=== PATIENT | male | born 1970 | race Caucasian/White ===

== ENCOUNTER 2018-10-12 12:18 | Emergency (ER) | payer OTHER ==
[~2018-10-12] VITALS: Ht 180.3 cm; Wt 86.2 kg
--- NOTE | 2018-10-12 12:44 | PHYS DOC ---
Adult General Chief Complaint Chief Complaint: ANKLE PROBLEM HPI HPI Patient is a 48-year-old male who presents with complaint of injury to his right ankle that he sustained when his foot got tangled up in latter and fell approximately 8 feet onto his right foot. Patient states that he feels like he rolled his ankle when he landed. He rates pain as being moderate and states that he has difficulty with bearing weight. He denies any other injuries. Review of Systems Review of Systems Constitutional: Denies fever or chills [] Respiratory: Denies cough or shortness of breath [] Cardiovascular: No additional information not addressed in HPI [] Musculoskeletal: Complains of right ankle pain [] Neurologic: Denies headache, focal weakness or sensory changes [] Allergies Allergies Allergies Coded Allergies Type Severity Reaction Last Updated Verified No Known Drug Allergies 10/12/18 No Physical Exam Physical Exam Constitutional: Well developed, well nourished, no acute distress, non-toxic appearance. [] Neck: Normal range of motion, no tenderness, supple, no stridor. [] Cardiovascular: Regular rate and rhythm, no murmur [] Lungs & Thorax: Bilateral breath sounds clear to auscultation [] Extremities: Right ankle demonstrates mild soft tissue swelling with ecchymosis around the lateral malleolus. There is no malleolar tenderness. Greatest area of tenderness is over insertion of the posterior talofibular ligament. [] Neurologic: Alert and oriented X 3, normal motor function, normal sensory function, no focal deficits noted. [] EKG EKG [] Radiology/Procedures Radiology/Procedures [] Impressions: PROCEDURE: ANKLE RIGHT 3V EXAM: AP, oblique and lateral views of the right and ankle DATE: 10/12/2018 12:41 PM INDICATION: RIGHT ANKLE PAIN. PATIENT FELL SIDEWAYS WHEN LADDER FELL. COMPARISON: No Prior FINDINGS/ IMPRESSION: There is a comminuted fracture of the calcaneus with suspected extension to the posterior subtalar joint as well as the middle subtalar joint. There is cortical offset particularly inferiorly. Moderate associated soft tissue swelling. Electronically signed by: Eulalio Queen MD (10/12/2018 12:59 PM) [facility] Course & Med Decision Making Course & Med Decision Making Pertinent Labs and Imaging studies reviewed. (See chart for details) Patient's case was discussed with on-call orthopedist at [place] and he is recommending management with orthopedics. [facility] Center was contacted and after orthopedist reviewed images, they're recommending follow-up tomorrow morning at 9:00 in there or the clinic. Christiane Disclaimer Christiane Disclaimer This electronic medical record was generated, in whole or in part, using a voice recognition dictation system. Departure Departure: Impression: Primary Impression: Calcaneus fracture, right Disposition: 01 HOME, SELF-CARE Condition: STABLE Referrals: PCP,NO (PCP) Patient Instructions: Foot Fracture Additional Instructions: Present to [facility] and he will be forwarded to the orthopedic clinic and have scheduled appointment for 9:00 AM tomorrow with on-call orthopedist. Remain nonweightbearing to right foot. Scripts Naproxen (NAPROSYN) 500 Mg Tablet 1 TAB PO BID PRN for PAIN, #20 TAB Prov: BARRERA MADRID Jr. DO 10/12/18 Hydrocodone Bit/Acetaminophen (NORCO 10-325 TABLET) 1 Each Tablet 1 TAB PO PRN Q6HRS PRN for PAIN, #15 TAB 0 Refills Prov: BARRERA MADRID Jr. DO 10/12/18 Problem Qualifiers Primary Impression: Calcaneus fracture, right Encounter type: initial encounter Calcaneus location: unspecified portion of calcaneus Fracture type: closed Fracture alignment: nondisplaced Qualified Codes: S92.001A - Unspecified fracture of right calcaneus, initial encounter for closed fracture BARRERA MADRID Jr. DO Oct 12, 2018 12:44
--- NOTE | 2018-10-12 13:04 | RAD ---
EXAM: AP, oblique and lateral views of the right and ankle DATE: 10/12/2018 12:41 PM INDICATION: RIGHT ANKLE PAIN. PATIENT FELL SIDEWAYS WHEN LADDER FELL. COMPARISON: No Prior FINDINGS/ IMPRESSION: There is a comminuted fracture of the calcaneus with suspected extension to the posterior subtalar joint as well as the middle subtalar joint. There is cortical offset particularly inferiorly. Moderate associated soft tissue swelling. Electronically signed by: Eulalio Queen MD (10/12/2018 12:59 PM) [facility]
[2018-10-12] MEDS ORDERED: ONDANSETRON ODT 4 MG TAB.RAPDIS PO ONE (14:00)
[2018-10-12 16:16] VITALS: BP 163/89
[2018-10-12] MEDS ORDERED: NAPR-683 PO (17:08)
[2018-10-12] MEDS ORDERED: HYDR-3136 PO (17:08)
[2018-10-12] MEDS ORDERED: oxyCODONE/APAP 10/325 1 TAB TABLET PO ONE (17:40)
== END 2018-10-12 17:50 | disposition home or self-care (01) ==
LOC: ER 12:18
DX: S92.001A Unspecified fracture of right calcaneus, initial encounter for closed fracture (principal); W17.89XA Other fall from one level to another, initial encounter; Y93.89 Activity, other specified; Y92.89 Other specified places as the place of occurrence of the external cause; Y99.8 Other external cause status
CPT/HCPCS: 29515; 73610; 96372; 99283; J3010; Q0162